=== PATIENT | male | born 1925 | race Caucasian/White ===

== ENCOUNTER 2016-06-30 05:46 | Emergency (ER) | payer OTHER ==
[~2016-06-30] VITALS: Ht 162.6 cm; Wt 61.2 kg
--- NOTE | ~2016-06-30 | EKG ---
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: Viktoria MCCLELLAND : 1925 Requested By: Ashtyn Ramirez Order Number: [id number] MD: Atif Castro Measurements Intervals [place] Rate: 94 P: -15 VT: 219 QRS: -21 QRSD: 95 T: -4 QT: 332 QTc: 416 Interpretive Statements Sinus rhythm Ventricular premature complex Prolonged VT interval Probable inferior infarct, age indeterminate No previous ECG available for comparison Electronically Signed On 06-30-2016 13:25:01 [employer]VAGE ENGINEERING TECHNICIAN by Atif Castro [email or web address] <ELECTRONICALLY SIGNED> By: Atif Castro MD, [facility] 06/30/16 1325 0658 7 Atif Castro MD, FACC /EPI
[~2016-06-30 05:46] MED LIST: ASPIRIN EC81 M1 PO; CARDURA2 MG PO; DEXILANT60 MG PO; NORCO 5-325 TA1 EACH PO; XYZAL5 MG PO
[2016-06-30] MEDS ORDERED: PRILOSEC OTC20 MG (06:02)
[2016-06-30] MEDS ORDERED: PROSTATE PILL (06:04)
[2016-06-30] MEDS ORDERED: CENTRUM SILVER1 EAC2 PO (06:04)
[2016-06-30] MEDS ORDERED: [UNRECOGNIZED DRUG - OTHER] (06:05)
[2016-06-30] MEDS ORDERED: VITAMIN D3400 UNIT (06:05)
[2016-06-30] MEDS ORDERED: VALIUM5 MG PO (07:57)
== END 2016-06-30 08:38 | disposition home or self-care (01) ==
LOC: ER 05:46
DX: S16.1XXA Strain of muscle, fascia and tendon at neck level, initial encounter (principal); F10.99 Alcohol use, unspecified with unspecified alcohol-induced disorder; K21.9 Gastro-esophageal reflux disease without esophagitis; Z88.2 Allergy status to sulfonamides; X58.XXXA Exposure to other specified factors, initial encounter; Y93.9 Activity, unspecified; Y92.9 Unspecified place or not applicable; Y99.9 Unspecified external cause status